=== PATIENT | male | born 1960 | race Caucasian/White ===

== ENCOUNTER 2016-02-29 14:43 | Emergency (ER) | payer OTHER ==
[2016-02-29] MEDS ORDERED: PERCOCET 5MG/325MG TAB As Ordered ONE (16:17)
--- NOTE | 2016-02-29 16:50 | REP ---
Clinical: Trauma. Pain. Shortness of breath. Technique: Frontal view of the chest with multiple views of the left hemithorax. Comparison: 05/31/2015. Findings: Acute posterolateral left third and fourth rib fractures are identified on oblique images. Old lower posterolateral healed rib fractures remain stable. Frontal view of the chest demonstrates bibasilar areas of consolidation/atelectasis and possible small left pleural reaction. No pneumothorax. Findings: Acute posterolateral left third and fourth rib fractures. Bibasilar atelectasis and possible small left pleural reaction. No pneumothorax. Signed by Dariel Dueñas MD 02/29/2016 04:42 P
--- NOTE | 2016-02-29 17:30 | EDDOCDS ---
Physician Documentation [facility] Name: Panda Uribe Age: 55 yrs Sex: Male : 1960 Arrival Date: 02/29/2016 Time: 14:43 Bed PR Private MD: [facility] Disposition: 02/29/16 17:15 Discharged to Home/Self Care. Impression: Multiple fractures of ribs, left side - 3rd and 4th. - Condition is Stable. - Discharge Instructions: Rib Fracture. - Prescriptions for Percocet 5- 325 mg Oral Tablet - take 1 tablet by ORAL route every 6 hours As needed MDD: 4 tabs; 20 tablet. Doxycycline Hyclate 100 mg Oral Tablet - take 1 tablet by ORAL route every 12 hours; 20 tablet. Albuterol Sulfate 90 mcg/actuation Inhalation HFA Aerosol Inhaler - inhale 2 puff by INHALATION route every 4 hours As needed; 1 Inhaler. - Work Release Form - 5 day, Medication Reconciliation, Local Pharmacy Hours form. - Follow up: [facility]; When: 2 - 3 days; Reason: Recheck today's complaints, Continuance of care. - Problem is new. - Symptoms have improved. - Notes: USE MEDICATIONS AND INCENTIVE SPIROMETER INSTRUCTED, FOLLOW UP WITH YOUR PRIMARY DOCTOR, RETURN TO THE ER IF THE SYMPTOMS WORSEN OR BECOME CONCERNING Historical: - Allergies: Codeine Sulfate (Seizures); - Home Meds: 1. Advil PM 200-38 mg oral tab as needed 2. omeprazole 40 mg Oral cpDR 1 cap once daily 3. robitussin DM 10 cc as needed - PMHx: GERD; - PSHx: Appendectomy; - Social history: Smoking status: Cigars No barriers to communication noted, The patient speaks fluent Mohawk. - Family history: Not pertinent. - : The pt / caregiver states he / she is not on anticoagulants. Home medication list is obtained from the patient. - Exposure Risk Screening:: None identified. Vital Signs: 02/28 14:44 BP 139 / 82; Pulse 81; Resp 18 S; Temp 97.1(O); Pulse Ox 96% on R/A; Weight 90.72 kg / dd6 200 lbs (R); Height 5 ft. 11 in. (180.34 cm) (R); 17:24 BP 131 / 81; Pulse 67; Resp 18; Temp 97.6(O); Pulse Ox 97% on R/A; Pain 7/10; ct3 14:44 Body Mass Index 27.89 (90.72 kg, 180.34 cm) dd6 MDM: 16:11 Rib Unilat W/PA Chest Only Ordered. EDMS 16:11 oxyCODONE-acetaminophen 5 mg-325 mg 1 tabs PO once ordered. ck7 16:37 [facility] Payment Agreement was scanned into [employer] and attached to record. gjb 16:37 Financial registration complete. gjb 16:54 Call Respiratory ordered. ck7 16:54 -Incentive Spirometer ordered. ck7 16:58 Call Respiratory complete. ct3 17:11 Rib Unilat W/PA Chest Only Reviewed. ck7 Administered Medications: 16:20 Drug: oxyCODONE-acetaminophen 1 tabs [oxycodone-acetaminophen 5 mg-325 mg tablet (1 kcs tabs)] Route: PO; 17:29 Follow up: Response: No Adverse Reaction ms18 Signatures: Dispatcher [employer] EDMS Tiffany Phillips, RN RN dls Maria Guadalupe Best, ELECTRIC MOTOR REPAIRING SUPERVISOR ELECTRIC MOTOR REPAIRING SUPERVISOR ct3 Mheul Elias, RPA-C RPA-Cck7 Maylin Peña RN RN ms18 Lakesha Peoples Kacey RN kcs The chart was reviewed and I authenticate all verbal orders and agree with the evaluation and treatment provided.Attachments: 16:37 [facility] Payment Agreement gj MTDD
--- NOTE | 2016-02-29 17:30 | EDDOCDS ---
Nurse's Notes [facility] Name: Panda Uribe Age: 55 yrs Sex: Male : 1960 Arrival Date: 02/29/2016 Time: 14:43 Bed PR Private MD: [facility], [place] Diagnosis: Multiple fractures of ribs, left side-3rd and 4th Presentation: 02/28 14:58 Presenting complaint: Patient states: Pt was seen here night after falling on dls ice dx bruised ribs no FX. Pt not improving now is coughing feels stabbing pain in left side radiating into his back. Adult Sepsis Screening: The patient does not have new or worsening altered mentation. Patient's respiratory rate is less than 22. Systolic blood pressure is greater than 100. Patient has a qSOFA score of 1- Negative Sepsis Screen. Suicide/Homicide risk assessment- the patient denies having any suicidal and/or homicidal ideations and does not present with any other emotional, behavioral or mental health complaints. 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 Transition of care: patient was not received from another setting of care. 14:58 Acuity: AMILCAR Level 3 dls 14:58 Method Of Arrival: Walkin/Carried/Asstd dls Triage Assessment: 15:00 General: Appears distressed, well developed, well nourished, well groomed, Behavior is dls cooperative. Pain: Pain currently is 9 out of 10 on a pain scale. HIV screening NA for this visit Offered previously. Historical: - Allergies: Codeine Sulfate (Seizures); - Home Meds: 1. Advil PM 200-38 mg oral tab as needed 2. omeprazole 40 mg Oral cpDR 1 cap once daily 3. robitussin DM 10 cc as needed - PMHx: GERD; - PSHx: Appendectomy; - Social history: Smoking status: Cigars No barriers to communication noted, The patient speaks fluent Guyanese. - Family history: Not pertinent. - : The pt / caregiver states he / she is not on anticoagulants. Home medication list is obtained from the patient. - Exposure Risk Screening:: None identified. Screenin:27 Screening information is obtained from the patient. Fall risk: No risks identified. ms18 Assistance ADL's: requires no assistance with activities of daily living. Abuse/DV Screen: The patient / caregiver reports he/she is: not in a situation that causes fear, pain or injury. Nutritional screening: No deficits noted. Advance Directives: There is no living will. home support is adequate. Assessment: 17:27 General: Appears in no apparent distress, comfortable, Behavior is appropriate for age, ms18 cooperative, pleasant. Pain: Location: rib cage. Neurological: No deficits noted. Respiratory: Airway is patent Respiratory effort is even, unlabored. Derm: Skin is pink, warm & dry. Vital Signs: 14:44 BP 139 / 82; Pulse 81; Resp 18 S; Temp 97.1(O); Pulse Ox 96% on R/A; Weight 90.72 kg dd6 (R); Height 5 ft. 11 in. (180.34 cm) (R); 17:24 BP 131 / 81; Pulse 67; Resp 18; Temp 97.6(O); Pulse Ox 97% on R/A; Pain 7/10; ct3 14:44 Body Mass Index 27.89 (90.72 kg, 180.34 cm) dd6 Vitals: 14:44 Log In Time: February 29, 2016 at 14:42. dd6 ED Course: 14:44 Patient visited by Regino Sheldon PCA. dd6 14:44 [facility] is Private Physician. dd6 14:44 Patient moved to Waiting dd6 14:45 Patient moved to Pre RCE dd6 15:00 Triage Initiated dls 15:38 Patient moved to Triage 2 ms18 15:39 Patient visited by Maylin Peña RN. ms18 16:03 [facility] ck7 16:03 Viktoria Mohan MD is Attending Physician. ck7 16:03 Patient visited by Mehul Elias RPA-C. ck7 16:19 Patient moved to TR2 ct3 16:37 [facility] Payment Agreement was scanned into [employer] and attached to record. gjb 16:51 Patient visited by Mehul Elias RPA-C. ck7 16:53 Rib Unilat W/PA Chest Only Returned. EDMS 16:56 Patient moved to PR1 / 25 ct3 17:14 [facility] is Referral Physician. ck7 17:24 Patient visited by Maria Guadalupe Best PCA. ct3 17:27 Patient visited by Maylin Peña RN. ms18 17:27 The patient / caregiver is instructed regarding the plan of care and ED course. Patient ms18 has correct armband on for positive identification. Bed in low position. Property sent home with patient. :Personal belongings accompany Pt. 17:27 No IV's were initiated during this patient's visit. No procedures done that require ms18 assistance. Administered Medications: 16:20 Drug: oxyCODONE-acetaminophen 1 tabs [oxycodone-acetaminophen 5 mg-325 mg tablet (1 kcs tabs)] Route: PO; 17:29 Follow up: Response: No Adverse Reaction ms18 RT: 17:07 Incentive Spirometry performed: 10 inspirations. Volume of inspiration: 1000 mls. js11 Patient Effort good. Order Results: Radiology Order: Rib Unilat W/PA Chest Only Test: Rib Unilat W/PA Chest Only REASON FOR EXAMINATION: r/o fx, pneumonia; Clinical: Trauma. Pain. Shortness of breath.; ; Technique: Frontal view of the chest with multiple views of the left; hemithorax.; ; Comparison: 05/31/2015.; ; Findings:; Acute posterolateral left third and fourth rib fractures are identified on; oblique images. Old lower posterolateral healed rib fractures remain stable.; Frontal view of the chest demonstrates bibasilar areas of; consolidation/atelectasis and possible small left pleural reaction. No; pneumothorax.; ; Findings:; Acute posterolateral left third and fourth rib fractures.; Bibasilar atelectasis and possible small left pleural reaction.; No pneumothorax.; ; ; Signed by; Dariel Dueñas MD 02/29/2016 04:42 P; Outcome: 17:15 Discharge ordered by Provider. ck7 17:27 Discharge Assessment: Patient awake, alert and oriented x 3. No cognitive and/or ms18 functional deficits noted. Patient verbalized understanding of disposition instructions. patient administered narcotics - yes. Pt provided with safe discharge. The following High Risk Discharge criteria are identified: None. Discharged to home ambulatory, with significant other. Condition: good Condition: stable Condition: improved. Discharge instructions given to patient, significant other, Instructed on discharge instructions, follow up and referral plans. medication usage, no driving heavy equipment, Demonstrated understanding of instructions, medications, Pt was receptive of discharge instructions/ teaching. Prescriptions given X 3. No special radiology studies were completed. 17:29 Patient left the ED. ms18 Signatures: Dispatcher [employer] EDMelany Aggarwal, RN RN Tiffany Truong RN RN dls Regino Sheldon, STRUCTURES ASSEMBLER STRUCTURES ASSEMBLER dd6 Maria Guadalupe Best, STRUCTURES ASSEMBLER STRUCTURES ASSEMBLER ct3 Will Bey js11 Mehul Elias, RPA-C RPA-Cck7 Maylin Peña RN RN ms18 Lakesha Peoples MTDD
--- NOTE | 2016-03-02 18:29 | EDDOCDS ---
Physician Documentation [facility] Name: Panda Uribe Age: 55 yrs Sex: Male : 1960 Arrival Date: 02/29/2016 Time: 14:43 Bed PR Private MD: [facility] Disposition: 02/29/16 17:15 Discharged to Home/Self Care. Impression: Multiple fractures of ribs, left side - 3rd and 4th. - Condition is Stable. - Discharge Instructions: Rib Fracture. - Prescriptions for Percocet 5- 325 mg Oral Tablet - take 1 tablet by ORAL route every 6 hours As needed MDD: 4 tabs; 20 tablet. Doxycycline Hyclate 100 mg Oral Tablet - take 1 tablet by ORAL route every 12 hours; 20 tablet. Albuterol Sulfate 90 mcg/actuation Inhalation HFA Aerosol Inhaler - inhale 2 puff by INHALATION route every 4 hours As needed; 1 Inhaler. - Work Release Form - 5 day, Medication Reconciliation, Local Pharmacy Hours form. - Follow up: [facility]; When: 2 - 3 days; Reason: Recheck today's complaints, Continuance of care. - Problem is new. - Symptoms have improved. - Notes: USE MEDICATIONS AND INCENTIVE SPIROMETER INSTRUCTED, FOLLOW UP WITH YOUR PRIMARY DOCTOR, RETURN TO THE ER IF THE SYMPTOMS WORSEN OR BECOME CONCERNING Historical: - Allergies: Codeine Sulfate (Seizures); - Home Meds: 1. Advil PM 200-38 mg oral tab as needed 2. omeprazole 40 mg Oral cpDR 1 cap once daily 3. robitussin DM 10 cc as needed - PMHx: GERD; - PSHx: Appendectomy; - Social history: Smoking status: Cigars No barriers to communication noted, The patient speaks fluent Indonesian. - Family history: Not pertinent. - : The pt / caregiver states he / she is not on anticoagulants. Home medication list is obtained from the patient. - Exposure Risk Screening:: None identified. Vital Signs: 02/28 14:44 BP 139 / 82; Pulse 81; Resp 18 S; Temp 97.1(O); Pulse Ox 96% on R/A; Weight 90.72 kg / dd6 200 lbs (R); Height 5 ft. 11 in. (180.34 cm) (R); 17:24 BP 131 / 81; Pulse 67; Resp 18; Temp 97.6(O); Pulse Ox 97% on R/A; Pain 7/10; ct3 14:44 Body Mass Index 27.89 (90.72 kg, 180.34 cm) dd6 MDM: 16:11 Rib Unilat W/PA Chest Only Ordered. EDMS 16:11 oxyCODONE-acetaminophen 5 mg-325 mg 1 tabs PO once ordered. ck7 16:37 [facility] Payment Agreement was scanned into [employer] and attached to record. gjb 16:37 Financial registration complete. gjb 16:54 Call Respiratory ordered. ck7 16:54 -Incentive Spirometer ordered. ck7 16:58 Call Respiratory complete. ct3 17:11 Rib Unilat W/PA Chest Only Reviewed. 03/01 06:03 T-Sheet-- Draft Copy was scanned into [employer] and attached to record. lja Administered Medications: 02/28 16:20 Drug: oxyCODONE-acetaminophen 1 tabs [oxycodone-acetaminophen 5 mg-325 mg tablet (1 kcs tabs)] Route: PO; 17:29 Follow up: Response: No Adverse Reaction ms18 Signatures: Dispatcher [employer]Host EDMS Tiffany Phillips, MARILU MICHEL dls Nasir, Maria Guadalupe, HEEL VARNISHER HEEL VARNISHER ct3 Mehul Elias, RPA-C RPA-Cck7 Maylin Peña RN RN ms18 Arel, Lakesha Peña Kacey RN kcs The chart was reviewed and I authenticate all verbal orders and agree with the evaluation and treatment provided.Attachments: 16:37 [facility] Payment Agreement [facility] 03/01 06:03 T-Sheet-- Draft Copy lja Chart Complete MTDD
--- NOTE | 2016-03-02 18:29 | EDDOCDS ---
Physician Documentation [facility] Name: Panda Uribe Age: 55 yrs Sex: Male : 1960 Arrival Date: 02/29/2016 Time: 14:43 Bed PR Private MD: [facility] Disposition: 02/29/16 17:15 Discharged to Home/Self Care. Impression: Multiple fractures of ribs, left side - 3rd and 4th. - Condition is Stable. - Discharge Instructions: Rib Fracture. - Prescriptions for Percocet 5- 325 mg Oral Tablet - take 1 tablet by ORAL route every 6 hours As needed MDD: 4 tabs; 20 tablet. Doxycycline Hyclate 100 mg Oral Tablet - take 1 tablet by ORAL route every 12 hours; 20 tablet. Albuterol Sulfate 90 mcg/actuation Inhalation HFA Aerosol Inhaler - inhale 2 puff by INHALATION route every 4 hours As needed; 1 Inhaler. - Work Release Form - 5 day, Medication Reconciliation, Local Pharmacy Hours form. - Follow up: [facility]; When: 2 - 3 days; Reason: Recheck today's complaints, Continuance of care. - Problem is new. - Symptoms have improved. - Notes: USE MEDICATIONS AND INCENTIVE SPIROMETER INSTRUCTED, FOLLOW UP WITH YOUR PRIMARY DOCTOR, RETURN TO THE ER IF THE SYMPTOMS WORSEN OR BECOME CONCERNING Historical: - Allergies: Codeine Sulfate (Seizures); - Home Meds: 1. Advil PM 200-38 mg oral tab as needed 2. omeprazole 40 mg Oral cpDR 1 cap once daily 3. robitussin DM 10 cc as needed - PMHx: GERD; - PSHx: Appendectomy; - Social history: Smoking status: Cigars No barriers to communication noted, The patient speaks fluent Swedish. - Family history: Not pertinent. - : The pt / caregiver states he / she is not on anticoagulants. Home medication list is obtained from the patient. - Exposure Risk Screening:: None identified. Vital Signs: 02/28 14:44 BP 139 / 82; Pulse 81; Resp 18 S; Temp 97.1(O); Pulse Ox 96% on R/A; Weight 90.72 kg / dd6 200 lbs (R); Height 5 ft. 11 in. (180.34 cm) (R); 17:24 BP 131 / 81; Pulse 67; Resp 18; Temp 97.6(O); Pulse Ox 97% on R/A; Pain 7/10; ct3 14:44 Body Mass Index 27.89 (90.72 kg, 180.34 cm) dd6 MDM: 16:11 Rib Unilat W/PA Chest Only Ordered. EDMS 16:11 oxyCODONE-acetaminophen 5 mg-325 mg 1 tabs PO once ordered. ck7 16:37 [facility] Payment Agreement was scanned into [employer] and attached to record. gjb 16:37 Financial registration complete. gjb 16:54 Call Respiratory ordered. ck7 16:54 -Incentive Spirometer ordered. ck7 16:58 Call Respiratory complete. ct3 17:11 Rib Unilat W/PA Chest Only Reviewed. 03/01 06:03 T-Sheet-- Draft Copy was scanned into [employer] and attached to record. lja Administered Medications: 02/28 16:20 Drug: oxyCODONE-acetaminophen 1 tabs [oxycodone-acetaminophen 5 mg-325 mg tablet (1 kcs tabs)] Route: PO; 17:29 Follow up: Response: No Adverse Reaction ms18 Signatures: Dispatcher [employer]Host EDMS Tiffany Phillips, MARILU MICHEL dls Nasir, Maria Guadalupe, MANUFACTURING QUALITY INSPECTOR MANUFACTURING QUALITY INSPECTOR ct3 Mehul Elias, RPA-C RPA-Cck7 Maylin Peña RN RN ms18 Arel, Lakesha Peña Kacey RN kcs The chart was reviewed and I authenticate all verbal orders and agree with the evaluation and treatment provided.Attachments: 16:37 [facility] Payment Agreement [facility] 03/01 06:03 T-Sheet-- Draft Copy lja Chart Complete MTDD
--- NOTE | 2016-03-02 18:30 | EDDOCDS ---
Nurse's Notes [facility] Name: Panda Uribe Age: 55 yrs Sex: Male : 1960 Arrival Date: 02/29/2016 Time: 14:43 Bed PR Private MD: [facility], [place] Diagnosis: Multiple fractures of ribs, left side-3rd and 4th Presentation: 02/28 14:58 Presenting complaint: Patient states: Pt was seen here night after falling on dls ice dx bruised ribs no FX. Pt not improving now is coughing feels stabbing pain in left side radiating into his back. Adult Sepsis Screening: The patient does not have new or worsening altered mentation. Patient's respiratory rate is less than 22. Systolic blood pressure is greater than 100. Patient has a qSOFA score of 1- Negative Sepsis Screen. Suicide/Homicide risk assessment- the patient denies having any suicidal and/or homicidal ideations and does not present with any other emotional, behavioral or mental health complaints. Status: Patient is not a social services director or dependent. Transition of care: patient was not received from another setting of care. 14:58 Acuity: AMILCAR Level 3 dls 14:58 Method Of Arrival: Walkin/Carried/Asstd dls Triage Assessment: 15:00 General: Appears distressed, well developed, well nourished, well groomed, Behavior is dls cooperative. Pain: Pain currently is 9 out of 10 on a pain scale. HIV screening NA for this visit Offered previously. Historical: - Allergies: Codeine Sulfate (Seizures); - Home Meds: 1. Advil PM 200-38 mg oral tab as needed 2. omeprazole 40 mg Oral cpDR 1 cap once daily 3. robitussin DM 10 cc as needed - PMHx: GERD; - PSHx: Appendectomy; - Social history: Smoking status: Cigars No barriers to communication noted, The patient speaks fluent Burmese. - Family history: Not pertinent. - : The pt / caregiver states he / she is not on anticoagulants. Home medication list is obtained from the patient. - Exposure Risk Screening:: None identified. Screenin:27 Screening information is obtained from the patient. Fall risk: No risks identified. ms18 Assistance ADL's: requires no assistance with activities of daily living. Abuse/DV Screen: The patient / caregiver reports he/she is: not in a situation that causes fear, pain or injury. Nutritional screening: No deficits noted. Advance Directives: There is no living will. home support is adequate. Assessment: 17:27 General: Appears in no apparent distress, comfortable, Behavior is appropriate for age, ms18 cooperative, pleasant. Pain: Location: rib cage. Neurological: No deficits noted. Respiratory: Airway is patent Respiratory effort is even, unlabored. Derm: Skin is pink, warm & dry. Vital Signs: 14:44 BP 139 / 82; Pulse 81; Resp 18 S; Temp 97.1(O); Pulse Ox 96% on R/A; Weight 90.72 kg dd6 (R); Height 5 ft. 11 in. (180.34 cm) (R); 17:24 BP 131 / 81; Pulse 67; Resp 18; Temp 97.6(O); Pulse Ox 97% on R/A; Pain 7/10; ct3 14:44 Body Mass Index 27.89 (90.72 kg, 180.34 cm) dd6 Vitals: 14:44 Log In Time: February 29, 2016 at 14:42. dd6 ED Course: 14:44 Patient visited by Regino Sheldon PCA. dd6 14:44 [facility] is Private Physician. dd6 14:44 Patient moved to Waiting dd6 14:45 Patient moved to Pre RCE dd6 15:00 Triage Initiated dls 15:38 Patient moved to Triage 2 ms18 15:39 Patient visited by Maylin Peña RN. ms18 16:03 Mehul Elias RPA-C [facility] ck7 16:03 Viktoria Mohan MD is Attending Physician. ck7 16:03 Patient visited by Mehul Elias RPA-C. ck7 16:19 Patient moved to TR2 ct3 16:37 [facility] Payment Agreement was scanned into [employer] and attached to record. gjb 16:51 Patient visited by Mehul Elias RPA-C. ck7 16:53 Rib Unilat W/PA Chest Only Returned. EDMS 16:56 Patient moved to PR1 / 25 ct3 17:14 [facility] is Referral Physician. ck7 17:24 Patient visited by Maria Guadalupe Best PCA. ct3 17:27 Patient visited by Maylin Peña RN. ms18 17:27 The patient / caregiver is instructed regarding the plan of care and ED course. Patient ms18 has correct armband on for positive identification. Bed in low position. Property sent home with patient. :Personal belongings accompany Pt. 17:27 No IV's were initiated during this patient's visit. No procedures done that require ms18 assistance. 03/01 06:03 T-Sheet-- Draft Copy was scanned into [employer] and attached to record. jessica Administered Medications: 02/28 16:20 Drug: oxyCODONE-acetaminophen 1 tabs [oxycodone-acetaminophen 5 mg-325 mg tablet (1 kcs tabs)] Route: PO; 17:29 Follow up: Response: No Adverse Reaction ms18 RT: 17:07 Incentive Spirometry performed: 10 inspirations. Volume of inspiration: 1000 mls. js11 Patient Effort good. Order Results: Radiology Order: Rib Unilat W/PA Chest Only Test: Rib Unilat W/PA Chest Only REASON FOR EXAMINATION: r/o fx, pneumonia; Clinical: Trauma. Pain. Shortness of breath.; ; Technique: Frontal view of the chest with multiple views of the left; hemithorax.; ; Comparison: 05/31/2015.; ; Findings:; Acute posterolateral left third and fourth rib fractures are identified on; oblique images. Old lower posterolateral healed rib fractures remain stable.; Frontal view of the chest demonstrates bibasilar areas of; consolidation/atelectasis and possible small left pleural reaction. No; pneumothorax.; ; Findings:; Acute posterolateral left third and fourth rib fractures.; Bibasilar atelectasis and possible small left pleural reaction.; No pneumothorax.; ; ; Signed by; Dariel Dueñas MD 02/29/2016 04:42 P; Outcome: 17:15 Discharge ordered by Provider. ck7 17:27 Discharge Assessment: Patient awake, alert and oriented x 3. No cognitive and/or ms18 functional deficits noted. Patient verbalized understanding of disposition instructions. patient administered narcotics - yes. Pt provided with safe discharge. The following High Risk Discharge criteria are identified: None. Discharged to home ambulatory, with significant other. Condition: good Condition: stable Condition: improved. Discharge instructions given to patient, significant other, Instructed on discharge instructions, follow up and referral plans. medication usage, no driving heavy equipment, Demonstrated understanding of instructions, medications, Pt was receptive of discharge instructions/ teaching. Prescriptions given X 3. No special radiology studies were completed. 17:29 Patient left the ED. ms18 Signatures: Dispatcher [employer] EDMS Melany Valles, MARILU RN Tiffany Truong RN RN dls [place]eau, Daniell, DISCOUNT CLERK DISCOUNT CLERK dd6 Maria Guadalupe Best, DISCOUNT CLERK DISCOUNT CLERK ct3 Will Bey js11 Mehul Elias, RPA-C RPA-Cck7 Maylin Peña RN RN ms18 Arel, Lakesha Peña Chart Complete MTDD
== END 2016-02-29 17:29 | disposition home or self-care (01) ==
LOC: M ED 14:43
DX: S22.42XD Multiple fractures of ribs, left side, subsequent encounter for fracture with routine healing (principal); W01.0XXS Fall on same level from slipping, tripping and stumbling without subsequent striking against object, sequela; Y92.410 Unspecified street and highway as the place of occurrence of the external cause; Y93.89 Activity, other specified; Y99.8 Other external cause status; K21.9 Gastro-esophageal reflux disease without esophagitis; Z90.89 Acquired absence of other organs; Z72.0 Tobacco use; Z79.899 Other long term (current) drug therapy; Z88.2 Allergy status to sulfonamides; Z88.5 Allergy status to narcotic agent

== ENCOUNTER 2017-10-05 10:49 | Day surgery (SDC) | payer OTHER ==
[2017-10-05] MEDS: NS 1,000 ML IV ×2 (11:28)
[2017-10-05] MEDS ORDERED: LIDOCAINE 2% INJ 100 MG/5 ML SDV (FOR ANES.) As Ordered ×2 (12:11)
[2017-10-05] MEDS ORDERED: PROPOFOL 200 MG/20 ML VIAL As Ordered ×4 (12:11→13:31)
== END 2017-10-05 14:00 | disposition home or self-care (01) ==
LOC: M OPP 10:49
DX: Z12.11 Encounter for screening for malignant neoplasm of colon (principal); Z86.010 Personal history of colon polyps; D12.5 Benign neoplasm of sigmoid colon; D12.0 Benign neoplasm of cecum; K64.8 Other hemorrhoids; R10.13 Epigastric pain; R12 Heartburn; K22.8 Other specified diseases of esophagus; K29.70 Gastritis, unspecified, without bleeding; R01.1 Cardiac murmur, unspecified; K21.9 Gastro-esophageal reflux disease without esophagitis; N40.1 Benign prostatic hyperplasia with lower urinary tract symptoms; F17.290 Nicotine dependence, other tobacco product, uncomplicated; Z79.899 Other long term (current) drug therapy; Z80.3 Family history of malignant neoplasm of breast; Z80.8 Family history of malignant neoplasm of other organs or systems
CPT/HCPCS: 45385

== ENCOUNTER 2020-01-15 08:26 | Emergency (ER) | payer OTHER ==
[~2020-01-15] VITALS: Ht 180.3 cm; Wt 89.8 kg
[~2020-01-15 08:26] MED LIST: ADVI1CAP2 PO; ADVI200C5 PO; CYCL-707 PO; IBUP-1022 PO; OMEP40CA97 PO; PERC5TAB12 PO; RANI-397 PO; RANI1SYP PO; ROBA500T PO
[2020-01-15] MEDS ORDERED: NYST50SS PO (08:35)
[2020-01-15] MEDS ORDERED: ALLO100T PO (08:35)
[2020-01-15] MEDS ORDERED: MAPA500T2 PO (08:35)
[2020-01-15] MEDS ORDERED: ALBU8.5H INH (08:35)
[2020-01-15] MEDS ORDERED: PANT40TA29 PO (08:35)
[2020-01-15] MEDS ORDERED: ONDA4TAB6 PO (08:35)
[2020-01-15] MEDS ORDERED: KETOROLAC 60MG 2ML VIAL IM ONE (09:00)
--- NOTE | 2020-01-15 09:29 | REP ---
INDICATION: pain COMPARISON: None. TECHNIQUE: Four views left wrist obtained. FINDINGS: There is no evidence of acute fracture, dislocation, or intrinsic bone disease. IMPRESSION: No fracture or dislocation. <Electronically signed by Enrrique Garrett > 01/15/20 [id number]
--- NOTE | 2020-01-15 09:32 | REP ---
INDICATION: pain COMPARISON: None. TECHNIQUE: Four views left hand performed. FINDINGS: There is no evidence of acute fracture, dislocation, or intrinsic bone disease.The joint spaces are unremarkable. IMPRESSION: No fracture or dislocation. <Electronically signed by Enrrique Garrett > 01/15/20 [id number]
[2020-01-15] MEDS ORDERED: INDO50CA91 PO (10:31)
[2020-01-15 10:36] VITALS: BP 132/69
== END 2020-01-15 10:54 | disposition home or self-care (01) ==
LOC: M ED 08:26
DX: M10.032 Idiopathic gout, left wrist (principal); K21.9 Gastro-esophageal reflux disease without esophagitis; F17.200 Nicotine dependence, unspecified, uncomplicated; C26.1 Malignant neoplasm of spleen
CPT/HCPCS: 73110; 73130; 96372; 99284; J1885

== ENCOUNTER 2022-10-14 10:37 | Day surgery (SDC) | payer OTHER ==
[~2022-10-14] VITALS: Ht 180.3 cm; Wt 92.8 kg
[~2022-10-14 10:37] MED LIST changes: +ALBU8.5H INH; +ALLO100T PO; +INDO50CA91 PO; +LORA-930 PO; +MAPA500T2 PO; +NS 1,000 ML IV ONE; +NYST-38 PO; +OMEP40CA4 PO; -OMEP40CA97 PO; +ONDA4TAB6 PO; +PANT40TA29 PO; +VITA100093 PO
[2022-10-14] MEDS ORDERED: ALBUTEROL SULFATE 2.5MG/0.5ML INH NEB SOLN INH STA (11:54)
[2022-10-14] MEDS ORDERED: propofoL 200 MG/20 ML VIAL As Ordered ONE ×2 (12:35→12:44)
[2022-10-14] MEDS ORDERED: LIDOCAINE 2% 100MG/5ML SDV (FOR ANES.) As Ordered ONE (12:35)
[2022-10-14] MEDS ORDERED: fentaNYL 100 MCG/2 ML INJECTION As Ordered ONE (12:38)
[2022-10-14 13:25] VITALS: BP 130/83; TEMP 97.7; O2SAT 95
== END 2022-10-14 13:33 | disposition home or self-care (01) ==
LOC: M OPP 10:37
PROVIDERS: ATTEND Internal Medicine Gastroenterology
DX: Z12.11 Encounter for screening for malignant neoplasm of colon (principal); Z86.010 Personal history of colon polyps; D12.2 Benign neoplasm of ascending colon; K63.5 Polyp of colon; K57.30 Diverticulosis of large intestine without perforation or abscess without bleeding; K64.8 Other hemorrhoids; K29.70 Gastritis, unspecified, without bleeding; K44.9 Diaphragmatic hernia without obstruction or gangrene; F17.220 Nicotine dependence, chewing tobacco, uncomplicated; Z79.1 Long term (current) use of non-steroidal anti-inflammatories (NSAID); Z79.51 Long term (current) use of inhaled steroids; Z79.899 Other long term (current) drug therapy
CPT/HCPCS: 43239; 45385; 88305; J3010

== ENCOUNTER → 2024-01-11 | Outpatient (REF) | payer MEDICARE, OTHER ==
[~2024-01-11] MED LIST changes: -NS 1,000 ML IV ONE; +ONDA-282 PO; -ONDA4TAB6 PO
== END ==
LOC: M LAB REF 10:06
PROVIDERS: ATTEND Physician Assistant Medical
DX: Z11.2 Encounter for screening for other bacterial diseases (principal); B96.81 Helicobacter pylori [H. pylori] as the cause of diseases classified elsewhere